=== PATIENT | female | born 1990 | race Caucasian/White ===

== ENCOUNTER 2019-11-27 04:40 | Emergency (ER) | payer SELFPAY ==
[~2019-11-27] VITALS: Ht 149.9 cm; Wt 53.6 kg
[2019-11-27 04:51] VITALS: BP 141/83
[2019-11-27] MEDS ORDERED: proparacaine 0.5% ophthalmic drops 15ml EACHEYE ONE (05:15)
[2019-11-27] MEDS ORDERED: CIPR2.5D18 RIGHTEYE (05:22)
[2019-11-27] MEDS ORDERED: ciprofloxacin 0.3% 2.5ml ophthalmic solution RIGHTEYE ONE (05:30)
== END 2019-11-27 05:45 | disposition home or self-care (01) ==
LOC: ER 04:42
DX: H10.9 Unspecified conjunctivitis (principal); Z88.8 Allergy status to other drugs, medicaments and biological substances; Z79.899 Other long term (current) drug therapy
CPT/HCPCS: 99283

== ENCOUNTER 2024-10-22 09:49 | Outpatient (CLI) | payer BC ==
[2024-10-22 10:25] LABS: BASOPHILS # (AUTO) 0.1 X10'3 (0-0.2); BASOPHILS % (AUTO) 0.6 % (0-1); EOSINOPHILS # (AUTO) 0.2 X10'3 (0-0.9); EOSINOPHILS % (AUTO) 1.4 % (0-6); HEMATOCRIT 39.8 % (35.0-45.0); HEMOGLOBIN 13.4 g/dl (12.0-16.0); LYMPHOCYTES # (AUTO) 2.4 X10'3 (1.1-4.8); LYMPHOCYTES % (AUTO) 22.1 % (21-51); MEAN CORPUSCULAR HEMOGLOBIN 29.7 PG (27.0-31.0); MEAN CORPUSCULAR HGB CONC 33.8 g/dL (33.0-36.5); MEAN CORPUSCULAR VOLUME 88.1 FL (78-98); MEAN PLATELET VOLUME 8.4 FL (7.4-10.4); MONOCYTES # (AUTO) 0.7 X10'3 (0-0.9); MONOCYTES % (AUTO) 6.2 % (2-12); NEUTROPHILS # (AUTO) 7.6 X10'3 (1.8-7.7); NEUTROPHILS % (AUTO) 69.7 % (42-75); PLATELET COUNT 268 X10'3 (140-440); RED BLOOD COUNT 4.52 X10'6 (4.20-5.60); RED CELL DISTRIBUTION WIDTH 13.8 % (11.5-14.5); WHITE BLOOD COUNT 10.9 X10'3 (4.5-11.0)
[2024-10-22 10:50] LABS: ALANINE AMINOTRANSFERASE 26 U/L (12-78); ALBUMIN 4.4 G/DL (3.4-5.0); ALBUMIN/GLOBULIN RATIO 1.4 (1.1-1.5); ALKALINE PHOSPHATASE 94 IU/L (46-116); ANION GAP 7 (8-16); ASPARTATE AMINO TRANSFERASE 17 U/L (10-37); BILIRUBIN,TOTAL 0.4 MG/DL (0.1-1.0); BLOOD UREA NITROGEN 17 MG/DL (7-18); BUN/CREATININE RATIO 22.7 (10.0-20.0); CALCIUM 8.5 MG/DL (8.5-10.1); CHLORIDE 105 MMOL/L (99-107); CHOL/HDL RATIO 1.9 (0.00-4.99); CHOLESTEROL 132 MG/DL (0-200); CREATININE 0.75 MG/DL (0.40-0.90); GLUCOSE 96 MG/DL (70-104); HDL CHOLESTEROL 71 MG/DL (35-60); LDL CHOLESTEROL 52 MG/DL (50-100); POTASSIUM 3.8 MMOL/L (3.5-5.1); SODIUM 139 MMOL/L (135-145); THYROID STIMULATING HORMONE 1.38 ulU/ml (0.34-4.50); TOTAL PROTEIN 7.6 G/DL (6.4-8.2); TRIGLYCERIDES 51 MG/DL (20-135); eGFR 88 ML/MIN
[2024-10-23 11:12] LABS: FOLATE SERUM(FOLIC) 5.4 ng/mL (>3.0); THYROXINE (T4) 9.9 ug/dL (4.5-12.0)
== END 2024-10-22 23:59 | disposition home or self-care (01) ==
LOC: LAB 09:49
PROVIDERS: ATTEND Physician Assistant
DX: H93.13 Tinnitus, bilateral (principal); R53.83 Other fatigue; Z13.220 Encounter for screening for lipoid disorders; E59 Dietary selenium deficiency; E55.9 Vitamin D deficiency, unspecified; Z13.29 Encounter for screening for other suspected endocrine disorder; H81.399 Other peripheral vertigo, unspecified ear
CPT/HCPCS: 36415; 80053; 80061; 82306; 82607; 82746; 84436; 84443; 85025

== ENCOUNTER 2024-11-13 09:44 | Outpatient (CLI) | payer BC ==
--- NOTE | 2024-11-13 17:04 | RADIOLOGY REPORT ---
PROCEDURE: MR MRI HEAD INDICATION: DIZZINESS AND GIDDINESS,VERTIGO,TINNITUS EXAM DATE: 11/13/2024 10:20 AM COMPARISON: None TECHNIQUE: MRI of the brain without intravenous contrast. High-resolution images of the internal aud itory canals were also obtained. FINDINGS: Diffusion weighted images of the brain demonstrate no evidence of acute infarction. There is no evidence of acute intracranial hemorrhage, extra-axial collection, mass effect, midline s hift, herniation or hydrocephalus. The ventricles, sulci and cisterns appear age appropriate. The signal intensities of the brain parenchyma are within normal limits. No internal auditory canal mass identified. There are no signal abnormalities on the susceptibility weighted sequences. The major vascular flow voids are present. Cystic lesion in the left mastoid air cells measuring up to 15 mm. The surrounding soft tissues and osseous structures are unremarkable. IMPRESSION: 1. No evidence of acute infarction, intracranial hemorrhage, mass effect or hydrocephalus. Negative b rain MRI. No internal auditory canal mass identified on this noncontrast exam. Cystic lesion in the left mastoid air cells measuring up to 15 mm is nonspecific. Consider CT of the temporal bones for fu rther evaluation. HS:Y
== END 2024-11-13 23:59 | disposition home or self-care (01) ==
LOC: MRI02 09:44
PROVIDERS: ATTEND Physician Assistant
DX: H81.399 Other peripheral vertigo, unspecified ear (principal); H93.13 Tinnitus, bilateral
CPT/HCPCS: 70551

== ENCOUNTER 2024-11-23 15:34 | Outpatient (CLI) | payer BC ==
--- NOTE | 2024-11-23 16:13 | RADIOLOGY REPORT ---
INDICATION: TINNITUS, BILATERAL EXAM DATE: 11/23/2024 03:50 PM COMPARISON: None TECHNIQUE: CT of the temporal bones without intravenous contrast. RADIATION DOSE: CTDIvol: 62 mGy, DLP: 618 mGy*cm FINDINGS: On the right external auditory canal patent. No abnormal masses or fluid collections in the middle ea r cavity. The ossicles are intact. Mastoid sinus air cells well pneumatized. No structural abnormali ties of the inner ear canal. On the leftexternal auditory canal patent. No abnormal masses or fluid collections in the middle ear cavity. The ossicles are intact. Limited pneumatization of the left mastoid sinus air cells. Fluid i n the inferior left mastoid sinus air cells.. No structural abnormalities of the inner ear canal. IMPRESSION: 1. Evidence of prior infection in the left mastoid sinus. 2. Normal CT right temporal bone
== END 2024-11-23 23:59 | disposition home or self-care (01) ==
LOC: RAD 15:34
PROVIDERS: ATTEND Physician Assistant
DX: H70.92 Unspecified mastoiditis, left ear (principal); H93.13 Tinnitus, bilateral
CPT/HCPCS: 70480